=== PATIENT | female | born 1940 | race Caucasian/White ===

== ENCOUNTER 2017-08-21 22:01 | Emergency (ER) | payer MEDICARE ==
[~2017-08-21] VITALS: Wt 72.0 kg
[~2017-08-21 22:01] MED LIST: ACET1TAB40 PO; AMLO-147 PO; ASPI-664 PO; CARV3.12 PO; FLUT16SP24 NASAL; LEVO150T67 PO; LOSA100T7 PO; POTA20TA96 PO
[2017-08-21] MEDS ORDERED: hydrALAzine 20 MG INJ IV ONE (23:00)
[2017-08-21 23:57] LABS: BASOPHIL # 0.1 10^3/ul (0.0-0.1); BASOPHILS % 0.6 % (0.0-2.0); EOSINOPHILS # 0.2 10^3/ul (0.0-0.5); EOSINOPHILS % 2.9 % (0.0-7.0); HEMATOCRIT 35.1 % (37.0-47.0); LYMPHOCYTES # 1.6 10^3/ul (0.8-2.9); LYMPHOCYTES % 20.3 % (15.0-51.0); MEAN CORPUSCULAR HEMOGLOBIN 29.1 pg (29.0-33.0); MEAN CORPUSCULAR HGB CONC 34.2 g/dl (32.0-37.0); MEAN CORPUSCULAR VOLUME 85.2 fl (82.0-101.0); MEAN PLATELET VOLUME 10.8 fl (7.4-10.4); MONOCYTE # 0.6 10^3/ul (0.3-0.9); MONOCYTES % 7.2 % (0.0-11.0); NEUTROPHIL # 5.4 10^3/ul (1.6-7.5); NEUTROPHILS % 68.5 % (39.0-77.0); PLATELET COUNT 261 10^3/UL (140-415); RED BLOOD COUNT 4.12 10^6/ul (4.20-5.40); RED CELL DISTRIBUTION WIDTH 12.5 % (11.5-14.5); WHITE BLOOD COUNT 7.9 10^3/ul (4.8-10.8)
[2017-08-22 00:18] LABS: INR 1.01; PROTIME 13.3 Sec (12.2-14.2)
[2017-08-22 00:19] LABS: ANION GAP 11 (8-16); BLOOD UREA NITROGEN 16 mg/dl (7-20); CALCIUM 8.8 mg/dl (8.4-10.2); CARBON DIOXIDE 27 mmol/L (21-31); CHLORIDE 99 mmol/L (97-110); CREATININE 0.85 mg/dl (0.44-1.00); GLUCOSE 109 mg/dl (70-220); PARTIAL THROMBOPLASTIN TIME 30.5 Sec (25.0-35.0); POTASSIUM 4.1 mmol/L (3.5-5.1); SODIUM 133 mmol/L (135-144)
--- NOTE | 2017-08-22 00:25 | RADRPT ---
PROCEDURE: CHEST CLINICAL INDICATION: 77-year-old female with chest pain. TECHNIQUE: AP semi-erect views of the chest was obtained portably on two radiographs. The images were reviewed on a PACS workstation. COMPARISON: Chest x-ray May 16, 2015. FINDINGS: Multiple surgical clips are seen within the lower neck region consistent with prior thyroidectomy. T he cardiomediastinal silhouette is mildly enlarged. Chronic lung changes are present. There is no e vidence for an infiltrate. There is no evidence for congestive heart failure. There is no evidence for pneumothorax. The osseous structures are intact. IMPRESSION: 1. Mild cardiomegaly. 2. Chronic lung changes. 3. A status post thyroidectomy. .Papito Alamo MD, MD Date Time Electronically viewed and signed by .Papito Alamo MD, on 08/22/2017 00:25 .M/
[2017-08-22 00:32] LABS: TROPONIN-I < 0.012 ng/ml (0.00-0.12)
--- NOTE | 2017-08-22 01:50 | RADRPT ---
PROCEDURE: CT Brain without contrast. CLINICAL INDICATION: Headache. TECHNIQUE: A CT of the brain was performed utilizing axial sections from the skull base through th e vertex without contrast. Multiplanar re-formations were generated. Images were reviewed on a high- resolution PACS workstation. CTDIvol: 45.01 mGy. DLP: 720.23 mGy-cm. One or more of the following dose reduction techniques were used: - Automated exposure control. - Adjustment of the mA and/or kV according to patient size. - Use of iterative reconstruction technique. COMPARISON: None available FINDINGS: The sulci are normal size for the patient's age. No hydrocephalus is seen. There is no mass effect. No acute intracranial hemorrhage is identified. There is no extra-axial collection. Benitez-white segundo er differentiation is preserved. There is a chronic lacunar infarction in the left basal ganglia reg ion. There are minimal arterial calcifications. There is a fluid level in the right maxillary sinus and near complete opacification of the left sphe noid sinus. The visualized mastoid air cells are clear. The ossesous structures are unremarkable. Th e extracranial soft tissues are unremarkable. IMPRESSION: 1. No acute intracranial pathology. 2. Chronic lacunar infarction in the left basal ganglia region. 3. Fluid level in the right maxillary sinus and near complete opacification of the left sphenoid si nus, nonspecific but possibly representing sinusitis. RPTAT: HTAR .Nael Rubin MD, MD Date Time Electronically viewed and signed by .Nael Rubin MD, on 08/22/2017 01:49 .R/
[2017-08-22] MEDS ORDERED: HYDR-3671 PO (01:52)
--- NOTE | 2017-08-22 01:52 | ERD ---
ER Documentation Chief Complaint Date/Time DATE: 08/22/17 TIME: 01:51 Chief Complaint high blood pressure/headache since yesterday HPI This is a 77-year-old female comes in with elevated blood pressures and headache since yesterday. The headache is mild to moderate in intensity and pain scale, with no radiations and stays in the frontal part of her head. No focal neurological complaints. No visual acuity changes. Denies any chest pain nausea vomiting fevers or chills. Denies any weakness in her extremities. Denies any other current complaints. ROS All systems reviewed and are negative except as per history of present illness. Medications Home Meds Reported Medications Fluticasone Propionate* (Flonase* Nasal) 50 Mcg/Chelsea - 16 Gm Chelsea.susp, 1 SPRAY NASAL BID, SPRAY (TO EACH NOSTRIL) 05/16/15 Aspirin* (Aspirin* EC) 81 Mg Tablet.dr, 81 MG PO DAILY, TAB 05/16/15 Acetaminophen-Codeine* (Acetaminophen-Cod #3*) 300-30 Mg Tab, 1 TAB PO Q6 Y for PAIN, TAB 05/16/15 Levothyroxine Sodium* (Levothyroxine Sodium*) 150 Mcg Tablet, 150 MCG PO AC BREAKFAST, TAB 05/16/15 Amlodipine Besylate* (Amlodipine Besylate*) 10 Mg Tablet, 10 MG PO DAILY, TAB 05/16/15 Carvedilol* (Coreg*) 3.125 Mg Tablet, 3.125 MG PO BID, TAB 05/16/15 Potassium Chloride* (Potassium Chloride*) 20 Meq Tablet.er, 20 MEQ PO BID, TAB.SA 05/16/15 Losartan Potassium* (Losartan Potassium*) 100 Mg Tablet, 100 MG PO DAILY, TAB 05/16/15 Allergies Allergies: Coded Allergies: No Known Allergy (Unverified , 08/21/17) PMhx/Soc Anesthesia Reaction: No Hx Neurological Disorder: No Hx Respiratory Disorders: No Hx Cardiac Disorders: Yes (HTN) Hx Psychiatric Problems: No Hx Miscellaneous Medical Probl: Yes (DM) Hx Alcohol Use: No Hx Substance Use: No Hx Tobacco Use: No Smoking Status: Never smoker Physical Exam Vitals Vital Signs Date Time Temp Pulse Resp B/P Pulse Ox O2 Delivery O2 Flow Rate FiO2 08/21/17 22:08 98.6 77 20 227/107 98 Physical Exam Const: [] Head: Atraumatic Eyes: Normal Conjunctiva ENT: Normal External Ears, Nose and Mouth. Neck: Full range of motion..~ No meningismus. Resp: Clear to auscultation bilaterally Cardio: Regular rate and rhythm, no murmurs Abd: Soft, non tender, non distended. Normal bowel sounds Skin: No petechiae or rashes Back: No midline or flank tenderness Ext: No cyanosis, or edema Neur: Awake and alert Psych: Normal Mood and Affect Result Diagram: 08/21/17231108/21/17 2312 Results 24 hrs Laboratory Tests Test 08/21/17 23:12 White Blood Count 7.910^3/ul Red Blood Count 4.1210^6/ul Hemoglobin 12.0g/dl Hematocrit 35.1% Mean Corpuscular Volume 85.2fl Mean Corpuscular Hemoglobin 29.1pg Mean Corpuscular Hemoglobin Concent 34.2g/dl Red Cell Distribution Width 12.5% Platelet Count 24031^3/UL Mean Platelet Volume 10.8fl Neutrophils % 68.5% Lymphocytes % 20.3% Monocytes % 7.2% Eosinophils % 2.9% Basophils % 0.6% Nucleated Red Blood Cells % 0.0/100WBC Neutrophils # 5.410^3/ul Lymphocytes # 1.610^3/ul Monocytes # 0.610^3/ul Eosinophils # 0.210^3/ul Basophils # 0.110^3/ul Nucleated Red Blood Cells # 0.010^3/ul Prothrombin Time 13.3Sec Prothrombin Time Ratio 1.0 INR International Normalized Ratio 1.01 Activated Partial Thromboplast Time 30.5Sec Sodium Level 133mmol/L Potassium Level 4.1mmol/L Chloride Level 99mmol/L Carbon Dioxide Level 27mmol/L Anion Gap 11 Blood Urea Nitrogen 16mg/dl Creatinine 0.85mg/dl Glucose Level 109mg/dl Calcium Level 8.8mg/dl Troponin I < 0.012ng/ml Current Medications Medications (Trade) Dose Ordered Sig/Juana Route PRN Reason Start Time Stop Time Status Last Admin Dose Admin Hydralazine HCl (Apresoline) 20 mg ONCE ONCE IV 08/21/17 23:00 08/21/17 23:01 DC 08/21/17 23:24 Procedures/MDM EKG: Rate/Rhythm: [Normal Sinus Rhythm] QRS, ST, T-waves: [No changes consistent w/ acute ischemia] Impression: [No evidence of ischemia or arrhythmia] Chest X-ray 1V Interpreted by me: Soft Tissue: No acute abnormalities Bones: No acute abnormalities Mediastinum/Cardiac Silhouette/Lungs: [No acute abnormalities] Patient's blood pressure was elevated (>120/80) but appears stable without evidence of hypertension emergency or urgency. The patient was counseled about the risks of hypertension and urged to pursue outpatient monitoring and therapy within a week with their primary care physician. Patient's neurologic symptoms have stabilized while they have been evaluated in the department and are appropriate for outpatient work up. No e/o meningitis, intracranial bleed, seizure, stroke. Departure Diagnosis: Primary Impression: Hypertension Hypertension type: essential hypertension Qualified Code: I10 - Essential hypertension Additional Impression: Hypertensive urgency Condition: Stable RICK PEPE Aug 22, 2017 01:52
[2017-08-22 02:00] VITALS: BP 163/83; PULSE 72; RESP 20; TEMP 98.6
== END 2017-08-22 02:02 | disposition home or self-care (01) ==
LOC: E/R 22:01
DX: I10 Essential (primary) hypertension (principal); I16.0 Hypertensive urgency; E11.9 Type 2 diabetes mellitus without complications; R07.9 Chest pain, unspecified; Z79.82 Long term (current) use of aspirin
CPT/HCPCS: 36415; 70450; 71010; 80048; 84484; 85025; 85610; 85730; 93005; 96374; 99285; J0360